=== PATIENT | female | born 1945 | race Caucasian/White ===

== ENCOUNTER → 2020-03-06 | Outpatient (CLI) | payer MEDICARE, BC ==
[2020-03-06 10:58] LABS: HEMOGLOBIN 12.3 gm/dl (12.3-15.3); RED BLOOD COUNT 4.32 M/UL (4.00-5.10)
[2020-03-08 15:08] LABS: WHITE BLOOD COUNT 24.5 K/UL (4.5-11.0)
== END ==
LOC: LAB 09:23
PROVIDERS: Internal Medicine Hematology & Oncology
DX: C91.10 Chronic lymphocytic leukemia of B-cell type not having achieved remission (principal)
CPT/HCPCS: 36415; 80053; 82728; 83540; 83550; 85025

== ENCOUNTER → 2020-06-12 | Outpatient (CLI) | payer MEDICARE, BC ==
[2020-06-12 10:36] LABS: HEMOGLOBIN 12.5 gm/dl (12.3-15.3); RED BLOOD COUNT 4.31 M/UL (4.00-5.10)
[2020-06-12 10:48] LABS: WHITE BLOOD COUNT 36.6 K/UL (4.5-11.0)
== END ==
LOC: LAB 09:41
PROVIDERS: Internal Medicine Hematology & Oncology
DX: D50.9 Iron deficiency anemia, unspecified (principal)
CPT/HCPCS: 36415; 80053; 82728; 83540; 83550; 85007; 85027

== ENCOUNTER → 2020-09-11 | Outpatient (CLI) | payer MEDICARE, BC ==
[2020-09-11 09:58] LABS: RED BLOOD COUNT 4.34 M/UL (4.00-5.10)
[2020-09-11 15:16] LABS: WHITE BLOOD COUNT 48.3 K/UL (4.5-11.0)
== END ==
LOC: LAB 08:49
PROVIDERS: Internal Medicine Hematology & Oncology
DX: C91.10 Chronic lymphocytic leukemia of B-cell type not having achieved remission (principal)
CPT/HCPCS: 36415; 80053; 82728; 83540; 83550; 85025

== ENCOUNTER → 2021-01-15 | Outpatient (CLI) | payer MEDICARE, BC ==
[2021-01-15 10:43] LABS: HEMOGLOBIN 12.3 gm/dl (12.3-15.3); RED BLOOD COUNT 4.49 M/UL (4.00-5.10)
[2021-01-15 11:31] LABS: WHITE BLOOD COUNT 65.7 K/UL (4.5-11.0)
== END ==
LOC: LAB 10:05
PROVIDERS: Internal Medicine Hematology & Oncology
DX: C91.10 Chronic lymphocytic leukemia of B-cell type not having achieved remission (principal)
CPT/HCPCS: 36415; 80053; 82728; 83540; 83550; 85007; 85027

== ENCOUNTER → 2021-06-27 | Outpatient (CLI) | payer MEDICARE, BC ==
[2021-06-27 10:17] LABS: RED BLOOD COUNT 4.15 M/UL (4.00-5.10)
[2021-06-27 10:59] LABS: WHITE BLOOD COUNT 70.1 K/UL (4.5-11.0)
== END ==
LOC: LAB 09:42
PROVIDERS: Internal Medicine Hematology & Oncology
DX: C91.10 Chronic lymphocytic leukemia of B-cell type not having achieved remission (principal)
CPT/HCPCS: 36415; 80053; 85007; 85027

== ENCOUNTER → 2021-11-06 | Outpatient (CLI) | payer MEDICARE, BC ==
[2021-11-06 12:37] LABS: HEMOGLOBIN 11.9 gm/dl (12.3-15.3); RED BLOOD COUNT 4.64 M/UL (4.00-5.10)
[2021-11-08 08:35] LABS: WHITE BLOOD COUNT 98.5 K/UL (4.5-11.0)
== END ==
LOC: LAB 11:54
PROVIDERS: Internal Medicine Hematology & Oncology
DX: C91.10 Chronic lymphocytic leukemia of B-cell type not having achieved remission (principal)
CPT/HCPCS: 36415; 80053; 85025